=== PATIENT | male | born 1995 | race Caucasian/White ===

== ENCOUNTER 2018-07-19 09:42 | Emergency (ER) | payer SELFPAY ==
--- NOTE | 2018-07-19 10:30 | RAD ---
PORTABLE CHEST: Date: 07-19-18 Time: 9:35 a.m. History: Chest pain FINDINGS: The heart size is normal. The lungs are expanded without focal areas of consolidation, pneumothoraces or pleural effusions. IMPRESSION: No acute process. POS: OFF
[2018-07-19 10:46] LABS: #Eosinphils 0.4 thou/uL (0.0-0.7); #Lymphocytes 3.3 thou/uL (1.20-3.40); #Monocytes 0.5 thou/uL (0.11-0.59); #Neutrophils 3.8 thou/uL (1.40-6.50); %Basophils 0.5 % (0.0-1.0); %Eosinophils 5.6 % (0.0-10.0); %Lymphocytes 40.6 % (21.0-51.0); %Monocytes 5.7 % (0.0-10.0); %Neutrophils 47.7 % (42.0-75.0); Hemoglobin 15.3 g/dL (14.0-18.0); Mean Corpuscular HGB CONC 33.4 g/dL (32.0-36.0); Mean Corpuscular Hemoglobin 28.1 pg (27.0-31.0); Mean Corpuscular Volume 84.3 fL (78.0-98.0); Mean Platelet Volume 7.9 fL (7.4-10.4); Platelet Count 229 thou/uL (130-400); Red Blood Cell (RBC) Count 5.43 mill/uL (4.70-6.10); White Blood Cell (WBC) Count 8.1 thou/uL (4.8-10.8)
[2018-07-19 11:12] LABS: ALT (SGPT) 19 U/L (8-55); AST (SGOT) 18 U/L (5-34); Albumin 4.6 g/dL (3.5-5.0); Alkaline Phosphatase 111 U/L (40-150); Anion Gap 13 mmol/L (10-20); BUN (Urea Nitrogen) 10 mg/dL (8.9-20.6); Bilirubin, Total 0.5 mg/dL (0.2-1.2); Calc. Creatinine Clearance 0 mL/min (70-130); Calcium 9.7 mg/dL (7.8-10.44); Carbon Dioxide 24 mmol/L (22-29); Chloride 106 mmol/L (98-107); Estimated GFR-MDRD Greater than 90; Globulin 2.3 g/dL (2.4-3.5); Glucose 85 mg/dL (70-105); Potassium 4.1 mmol/L (3.5-5.1); Protein, Total 6.9 g/dL (6.0-8.3); Sodium 139 mmol/L (136-145)
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
[2018-07-19] MEDS ORDERED: ISOVUE-370 76%-LOCM 1 ML ONE (12:44)
== END 2018-07-19 12:30 | disposition home or self-care (01) ==
LOC: ERS 09:42
DX: R07.89 Other chest pain (principal); R10.12 Left upper quadrant pain; V89.2XXA Person injured in unspecified motor-vehicle accident, traffic, initial encounter
CPT/HCPCS: 36415; 71045; 74177; 80053; 84484; 85025; 93005; Q9966

== ENCOUNTER 2018-11-19 10:16 | Emergency (ER) | payer SELFPAY ==
[2018-11-19] MEDS ORDERED: Ondansetron ODT 4 MG TAB ONE (10:32)
[2018-11-19] MEDS ORDERED: Dicyclomine 20 MG TAB ONE (10:48)
== END 2018-11-19 11:05 | disposition home or self-care (01) ==
LOC: ERS 10:16
DX: K52.9 Noninfective gastroenteritis and colitis, unspecified (principal); I47.1 Supraventricular tachycardia
CPT/HCPCS: 99283; Q0162

== ENCOUNTER 2018-11-25 13:17 | Emergency (ER) | payer SELFPAY ==
--- NOTE | 2018-11-25 16:30 | ULT ---
SCROTAL ULTRASOUND INCLUDING COLOR AND SPECTRAL DOPPLER IMAGING: HISTORY: Left scrotal mass. FINDINGS: The right testis measures 4.5 x 2.4 x 2.8 cm. The left testis measures 3.4 x 3.0 x 1.9 cm. The right and left epididymal regions are unremarkable. There is a 1.5 x 2.3 x 3.0 cm in diameter, heterogeneously echogenic, circumscribed mass, superior to the testes and somewhat medial to the penis on the left side. This corresponds to a 2.0 x 2.8 cm, c ircumscribed, lower attenuation mass seen on prior CT scan of the abdomen and pelvis from 07/19/2018, in retrospect. I favor this being some type of superficial subcutaneous mass, including the possibi lity of a sebaceous cyst. No intratesticular mass. Vascular flow with color and spectral Doppler im aging demonstrates arterial inflow and venous outflow to both testes. No evidence for testicular tor rj. IMPRESSION: A 1.5 x 2.3 x 3.0 cm, circumscribed, heterogeneously echogenic mass, corresponding to the area of pal pable concern and corresponding to a circumscribed, low attenuation mass on prior CT, which is very s uperficial, almost exophytic, on the prior CT. I favor this representing some type of cutaneous or s ubcutaneous mass, including that of a sebaceous cyst. Apparently, it is not aggressive, since the pat ient states that he has had it for up to 7 years. No intratesticular mass. No testicular torsion. No evidence for hydrocele. POS: [facility]
== END 2018-11-25 16:15 | disposition home or self-care (01) ==
LOC: ERS 13:17
DX: L72.3 Sebaceous cyst (principal); F41.9 Anxiety disorder, unspecified; F17.210 Nicotine dependence, cigarettes, uncomplicated
CPT/HCPCS: 76870; 93976